=== PATIENT | female | born 1990 | race Caucasian/White ===

== ENCOUNTER → 2016-10-12 | Outpatient (REF) | payer OTHER | LOC: M LAB REF 13:05 | PROVIDERS: ATTEND Physician Assistant | DX: N39.0 Urinary tract infection, site not specified (principal) ==

== ENCOUNTER → 2016-12-03 | Outpatient (REF) | payer OTHER | LOC: M LAB REF 10:04 | PROVIDERS: ATTEND Physician Assistant | DX: R39.9 Unspecified symptoms and signs involving the genitourinary system (principal) ==

== ENCOUNTER 2019-09-29 08:12 | Emergency (ER) | payer OTHER ==
[~2019-09-29] VITALS: Ht 157.5 cm; Wt 91.2 kg
[2019-09-29] MEDS ORDERED: NS 1,000 ML IV ONE (08:30)
[2019-09-29 09:12] LABS: BASO % 0.2 % (0.0-1.0); EOS # 0.2 10^3/uL (0.0-0.5); EOS % 4.2 % (0.0-3.0); HEMOGLOBIN 12.9 g/dl (12.0-15.5); LYMPH # 0.9 10^3/uL (1.5-5.0); LYMPH % 16.9 % (24.0-44.0); MEAN CORPUSCULAR HEMOGLOBIN 28.9 pg (27.0-33.0); MEAN CORPUSCULAR HGB CONC 33.9 g/dl (32.0-36.5); MEAN CORPUSCULAR VOLUME 85.2 fl (80.0-96.0); MONO # 0.6 10^3/uL (0.0-0.8); MONO % 12.3 % (0.0-5.0); NEUTROPHILS # 3.3 10^3/uL (1.5-8.5); NEUTROPHILS % 66.2 % (36.0-66.0); PLATELET COUNT, AUTOMATED 243 10^3/uL (150-450); RED BLOOD COUNT 4.46 10^6/uL (4.00-5.40)
[2019-09-29] MEDS ORDERED: ACETAMINOPHEN TAB 650MG DOSE (2X325MG) PO ONE (09:15)
[2019-09-29] MEDS ORDERED: CIPRODEX AS (09:18)
[2019-09-29] MEDS ORDERED: AZEL1SPR3 (09:18)
[2019-09-29] MEDS ORDERED: SULF1TAB93 PO (09:18)
[2019-09-29] MEDS ORDERED: [UNRECOGNIZED DRUG - CODE] (09:19)
[2019-09-29 09:22] LABS: HCG, SERUM QUALITATIVE NEGATIVE (NEGATIVE)
[2019-09-29 09:26] LABS: ALBUMIN 3.9 GM/DL (3.2-5.2); ALT/SGPT 86 U/L (12-78); BILIRUBIN,TOTAL 0.6 MG/DL (0.2-1.0); BLOOD UREA NITROGEN 6 MG/DL (7-18); C REACTIVE PROTEIN QUANTITATIV 4.42 MG/DL (0.00-0.30); CALCIUM LEVEL 8.6 MG/DL (8.5-10.1); CARBON DIOXIDE LEVEL 26 MEQ/L (21-32); CHLORIDE LEVEL 102 MEQ/L (98-107); CK-MB VALUE MASS < 1.0 NG/ML (<3.6); CPK CREATINE PHOSPHOKINASE 125 U/L (26-192); CREATININE FOR GFR 0.86 MG/DL (0.55-1.30); GLOMERULAR FILTRATION RATE > 60.0 (>60); GLUCOSE, FASTING 79 MG/DL (70-100); LDH LACTATE DEHYDROGENASE 320 U/L (84-246); POTASSIUM SERUM 4.2 MEQ/L (3.5-5.1); SODIUM LEVEL 136 MEQ/L (136-145); TOTAL PROTEIN 6.9 GM/DL (6.4-8.2); TROPONIN I < 0.02 NG/ML (< 0.10)
[2019-09-29 09:29] LABS: INR 1.13; PROTHROMBIN TIME 14.2 SECONDS (11.8-14.0)
--- NOTE | 2019-09-29 09:29 | REP ---
Clinical: Coronavirus workup . Comparison: None . Findings: The mediastinum and cardiac silhouette are stable and within normal limits for portable technique. The lung perdomo are clear without acute consolidation, effusion, or pneumothorax. Skeletal structures are intact. Impression: No acute cardiopulmonary process appreciated. Electronically Signed by Perez Connolly MD 09/29/2019 09:20 A
[2019-09-29 09:30] LABS: PARTIAL THROMBOPLASTIN TIME 31.9 SECONDS (25.0-38.4)
[2019-09-29 09:32] LABS: D-DIMER QUANT 966.35 ng/ml (<500)
[2019-09-29] MEDS ORDERED: ISOVUE-370 76% 100ML VIAL As Ordered ONE (09:46)
--- NOTE | 2019-09-29 10:16 | REP ---
Clinical: Acute chest pain and shortness of breath . Technique: Axial contrast enhanced images from the thoracic inlet to the upper abdomen using 100 ml Isovue 370 intravenous contrast material with coronal and sagittal re-formations. Findings: Satisfactory enhancement of the pulmonary vasculature is achieved and no filling defects are identified to suggest pulmonary embolus. Thoracic aorta is normal caliber without aneurysm or dissection. Heart and pericardium are normal. Bilateral lung perdomo are well aerated and clear without acute pulmonary parenchymal consolidation or atelectasis. No nodule or mass lesion. No pleural effusion/reaction. No pneumothorax. No adenopathy. Impression: No evidence for pulmonary embolus. No acute pleuroparenchymal or mediastinal process. Electronically Signed by Perez Connolly MD 09/29/2019 10:09 A
[2019-09-29 11:15] VITALS: BP 99/53
--- NOTE | 2019-09-29 19:20 | ECGEPIP ---
[facility] - ED Test Date: 2019-09-29 Pat Name: MING DIEHL Department: Room: - Gender: Female Cotton Tier: dominique : 1990 Requested By: Alfonzo Craven Order Number: [id number] Reading MD: Alfonzo Craven Measurements Intervals [place] Rate: 100 P: 58 [place]: 178 QRS: 61 QRSD: 79 T: 32 QT: 314 QTc: 405 Interpretive Statements SINUS TACHYCARDIA ABNORMAL RHYTHM ECG NONSPECIFIC ST T WAVE CHANGES NO PRIOR ECG FOR COMPARISON Electronically Signed on 09-29-2019 19:20:05 EDT by Alfonzo Craven
== END 2019-09-29 11:40 | disposition home or self-care (01) ==
LOC: M ED 08:12
DX: R06.00 Dyspnea, unspecified (principal); R50.9 Fever, unspecified; H60.92 Unspecified otitis externa, left ear; J32.9 Chronic sinusitis, unspecified; F41.9 Anxiety disorder, unspecified; Z87.09 Personal history of other diseases of the respiratory system; Z79.899 Other long term (current) drug therapy; Z79.2 Long term (current) use of antibiotics; Z20.828 Contact with and (suspected) exposure to other viral communicable diseases
CPT/HCPCS: 71045; 71275; 80053; 82550; 82553; 82728; 83605; 83615; 84145; 84484; 84703; 85025; 85379; 85610; 85730; 86140; 87040; 87486; 87581; 87633; 87798; 93005; 96360; 96361; 99284; C9803; Q9967; U0002

== ENCOUNTER → 2019-12-10 | Outpatient (CLI) | payer OTHER ==
[~2019-12-10] MED LIST: AZEL1SPR3; CIPRODEX AS; SULF1TAB93 PO; [UNRECOGNIZED DRUG - CODE]
--- NOTE | 2019-12-10 11:50 | REP ---
ULTRASOUND RIGHT BREAST: HISTORY: Retroareolar lump for 1 week. Real-time sonographic evaluation of the right retroareolar region is performed at the site of a palpable abnormality. No cyst or solid nodule is seen. IMPRESSION: ACR 1 negative ultrasound right retroareolar region. No cystic or solid nodule seen at the site of the palpable lump. Clinical correlation and followup recommended.
== END ==
LOC: M WHC 08:05
PROVIDERS: ATTEND Nurse Practitioner Women's Health
DX: N63.10 Unspecified lump in the right breast, unspecified quadrant (principal)

== ENCOUNTER → 2020-05-19 | Outpatient (REF) | payer OTHER | LOC: M SFHCWAGY 16:58 | PROVIDERS: ATTEND Nurse Practitioner Women's Health | DX: N90.89 Other specified noninflammatory disorders of vulva and perineum (principal) ==

== ENCOUNTER → 2020-06-04 | Outpatient (REF) | payer OTHER ==
[2020-06-06 19:16] LABS: HSV IgM TYPES 1&2 0.97 Ratio (0.00-0.90)
== END ==
LOC: M PLALAB 09:58
PROVIDERS: ATTEND Nurse Practitioner Women's Health
DX: N90.89 Other specified noninflammatory disorders of vulva and perineum (principal)

== ENCOUNTER → 2020-06-04 | Outpatient (CLI) | payer OTHER ==
[2020-06-04 11:10] LABS: HEMATOCRIT 39.6 % (36.0-47.0); HEMOGLOBIN 13.1 g/dl (12.0-15.5); MEAN CORPUSCULAR HEMOGLOBIN 29.6 pg (27.0-33.0); MEAN CORPUSCULAR HGB CONC 33.1 g/dl (32.0-36.5); MEAN CORPUSCULAR VOLUME 89.4 fl (80.0-96.0); PLATELET COUNT, AUTOMATED 331 10^3/uL (150-450); RED BLOOD COUNT 4.43 10^6/uL (4.00-5.40); WHITE BLOOD COUNT 7.1 10^3/uL (4.0-10.0)
[2020-06-04 11:47] LABS: ALBUMIN 3.8 GM/DL (3.2-5.2); ALT/SGPT 65 U/L (12-78); BILIRUBIN,TOTAL 1.2 MG/DL (0.2-1.0); BLOOD UREA NITROGEN 13 MG/DL (7-18); CALCIUM LEVEL 8.9 MG/DL (8.5-10.1); CARBON DIOXIDE LEVEL 29 MEQ/L (21-32); CHLORIDE LEVEL 106 MEQ/L (98-107); CHOLESTEROL LEVEL 151 MG/DL (<200); CHOLESTEROL RISK RATIO 2.796 (<5); CREATININE FOR GFR 0.71 MG/DL (0.55-1.30); FREE T4 1.16 NG/DL (0.76-1.46); GLOMERULAR FILTRATION RATE > 60.0 (>60); GLUCOSE, FASTING 89 MG/DL (70-100); HDL CHOLESTEROL 54 MG/DL (>40); LDL CHOLESTEROL 87 MG/DL (<100); NON-HDL-C 97 MG/DL; POTASSIUM SERUM 4.2 MEQ/L (3.5-5.1); SODIUM LEVEL 138 MEQ/L (136-145); TOTAL PROTEIN 6.4 GM/DL (6.4-8.2); TRIGLYCERIDES LEVEL 52 MG/DL (<150)
== END ==
LOC: M PLALAB 09:59
PROVIDERS: ATTEND Family Medicine
DX: F41.9 Anxiety disorder, unspecified (principal); E66.3 Overweight

== ENCOUNTER → 2020-08-28 | Outpatient (REF) ==
[~2020-08-28] MED LIST changes: +CIPR7.5D5 AS; -CIPRODEX AS
== END ==
LOC: M LABSMTC 11:59
PROVIDERS: ATTEND Pediatrics
DX: Z11.52 Encounter for screening for COVID-19 (principal)

== ENCOUNTER → 2020-08-31 | Outpatient (REF) | LOC: M LABSMTC 11:54 | PROVIDERS: ATTEND Pediatrics | DX: Z20.822 Contact with and (suspected) exposure to COVID-19 (principal) ==

== ENCOUNTER 2021-01-28 21:24 | Emergency (ER) | payer OTHER ==
[~2021-01-28] VITALS: Ht 157.5 cm; Wt 90.3 kg
[~2021-01-28 21:24] MED LIST changes: +BACTDSTA PO; -SULF1TAB93 PO
[2021-01-28 21:27] VITALS: BP 128/79
[2021-01-28] MEDS ORDERED: MONT10TA10 (21:36)
[2021-01-28] MEDS ORDERED: HYDR-3363 (21:36)
[2021-01-29] MEDS ORDERED: AUGMENTIN 875 MG TAB PO ONE (00:40)
[2021-01-29] MEDS ORDERED: LIDOCAINE 1% MDV 20ML VIAL SC ONE (00:40)
[2021-01-29] MEDS ORDERED: NEOSPORIN OINT 0.9 GM PKT TOP ONE (00:40)
[2021-01-29] MEDS ORDERED: AUGM875T28 PO (01:18)
== END 2021-01-29 01:43 | disposition home or self-care (01) ==
LOC: M ED 21:24
DX: S01.85XA Open bite of other part of head, initial encounter (principal); W54.0XXA Bitten by dog, initial encounter; Y92.009 Unspecified place in unspecified non-institutional (private) residence as the place of occurrence of the external cause; Y93.9 Activity, unspecified; Y99.9 Unspecified external cause status

== ENCOUNTER 2021-02-17 17:55 | Emergency (ER) | payer OTHER ==
[~2021-02-17] VITALS: Ht 157.5 cm; Wt 89.4 kg
[~2021-02-17 17:55] MED LIST changes: +AUGM875T28 PO; +HYDR-3363; +MONT10TA10
[2021-02-17] MEDS ORDERED: VITMTA PO (18:08)
[2021-02-17] MEDS ORDERED: CLAR5TAB7 PO (18:08)
[2021-02-17] MEDS ORDERED: MIRE1IUD IU (18:08)
[2021-02-17 19:05] LABS: GLUCOSE, URINE (UA) MANUAL NEGATIVE (NEGATIVE); KETONE, URINE MANUAL OBSCURED mg/dL (NEGATIVE)
[2021-02-17 19:06] LABS: BILIRUBIN, URINE MANUAL OBSCURED (NEGATIVE); UROBILINOGEN, URINE MANUAL OBSCURED mg/dl (NORMAL)
[2021-02-17 19:14] LABS: BACTERIA, URINE SMALL AMOUNT; HYALINE CAST, URINE NONE SEEN /lpf (0-1); RBC, URINE TNTC /hpf (0-3); SQUAMOUS EPITHELIAL CELL URINE NONE SEEN /hpf (SMALL AMT); TRANSITIONAL EPI CELLS, URINE SMALL AMOUNT /hpf
[2021-02-17] MEDS ORDERED: NS 1,000 ML IV ONE (23:35)
[2021-02-18 00:27] LABS: BASO # 0.1 10^3/uL (0.0-0.2); BASO % 0.3 % (0.0-1.0); EOS # 0.1 10^3/uL (0.0-0.5); EOS % 0.3 % (0.0-3.0); HEMATOCRIT 38.7 % (36.0-47.0); HEMOGLOBIN 13.3 g/dl (12.0-15.5); LYMPH # 1.1 10^3/uL (1.5-5.0); LYMPH % 6.8 % (24.0-44.0); MEAN CORPUSCULAR HEMOGLOBIN 29.9 pg (27.0-33.0); MEAN CORPUSCULAR HGB CONC 34.4 g/dl (32.0-36.5); MONO # 0.8 10^3/uL (0.0-0.8); MONO % 4.8 % (2.0-8.0); NEUTROPHILS # 14.2 10^3/uL (1.5-8.5); NEUTROPHILS % 86.6 % (36.0-66.0); PLATELET COUNT, AUTOMATED 337 10^3/uL (150-450); RED BLOOD COUNT 4.45 10^6/uL (4.00-5.40); WHITE BLOOD COUNT 16.4 10^3/uL (4.0-10.0)
[2021-02-18] MEDS ORDERED: cefTRIAXone SOD 1 GM in D5W MINI-BAG PLUS 50 ML IV ONE (01:00)
[2021-02-18] MEDS ORDERED: KETOROLAC 30 MG/ML 1ML VIAL IV ONE (01:00)
--- NOTE | 2021-02-18 01:42 | REPVR ---
PROCEDURE INFORMATION: Exam: CT Abdomen And Pelvis Without Contrast Exam date and time: 02/17/2021 11:33 PM Age: 30 years old Clinical indication: Abdominal pain; Flank; Right; Additional info: R flank pain, hematuria, dysuria, R. O stone vs pyelo TECHNIQUE: Imaging protocol: Computed tomography of the abdomen and pelvis without contrast. Radiation optimization: All CT scans at this facility use at least one of these dose optimization techniques: automated exposure control; mA and/or kV adjustment per patient size (includes targeted exams where dose is matched to clinical indication); or iterative reconstruction. COMPARISON: None Study limitations: Evaluation for mass, inflammatory change, including bowel wall/fold thickening, viscera, and vasculature, is suboptimal without contrast. FINDINGS: LUNG BASES: Minimal dependent atelectasis. VASCULAR: Major vasculature is within normal limits for noncontrast evaluation. PERITONEAL : No free air. Trace amount of free fluid within the pelvis. This could be physiologic. GI: No hiatal hernia. The stomach contains some ingested material and gas. The stomach is not sufficiently distended to evaluate wall thickening. No significant asymmetric small-bowel distention to suggest a complete obstruction. Evaluation for bowel wall and fold thickening is compromised on this study, secondary to lack of any contrast. Mild gastroenteritis cannot be excluded by this exam. No focal mesenteric inflammation is seen. Small nonspecific mesenteric lymph nodes are noted. Scattered fecal material and gas within portions of the colon. No pericolonic inflammation. No evidence of acute diverticulitis. The appendix does not appear inflamed. HEPATOBILIARY, PANCREAS, SPLEEN: Hepatic length is 15.9 cm. Attenuation of the liver is consistent with fatty infiltration. No calcified gallstones. No pancreatic inflammation. Spleen not enlarged. ADRENALS, KIDNEYS, BLADDER, RETROPERITONEAL: Adrenals within normal limits. No hydronephrosis. No perinephric stranding or fluid is seen. Evaluation of renal parenchyma is limited without contrast. No renal calculi seen bilaterally. There is mild prominence of the right ureter compared to the left and minimal right periureteral stranding. No ureteral calculi are seen. Multiple calcifications seen within the pelvis are felt likely to represent phleboliths. No calcifications within the urinary bladder. Appearance of the right ureter may be secondary to a recently passed or UTI. Correlation with hematuria and urinalysis would be helpful. If there is hematuria or evidence of infection, imaging with contrast could be of additional diagnostic benefit. No bladder wall thickening. No perivesical stranding. PELVIC: Anteverted uterus. An IUD is seen within the uterus, appearing to be in appropriate position. Gas within the vagina may be iatrogenic. MUSCULOSKELETAL: No acute findings. IMPRESSION: Study limitations discussed above. Slight dilation of the right ureter with mild surrounding inflammation may be secondary to a recently passed stone or inflammation/infection. Findings and recommendations as discussed above. Other incidental findings discussed above. Electronically signed by: Albert Henderson On 02/18/2021 01:42:21 AM
[2021-02-18] MEDS ORDERED: CIPR500T39 PO ×2 (01:56→01:58)
[2021-02-18] MEDS ORDERED: PHEN-372 PO (01:56)
[2021-02-18 02:00] VITALS: BP 112/65
[2021-02-18] MEDS ORDERED: PHENAZOPYRIDINE 100 MG TAB PO ONE (02:05)
== END 2021-02-18 02:19 | disposition home or self-care (01) ==
LOC: M ED 17:55
DX: N10 Acute pyelonephritis (principal); N39.0 Urinary tract infection, site not specified; R31.9 Hematuria, unspecified
CPT/HCPCS: 74176; 80047; 81000; 84702; 85025; 87088; 87186; 96361; 96365; 96375; 99284; J0696; J1885

== ENCOUNTER → 2021-04-24 | Outpatient (REF) ==
[~2021-04-24] MED LIST changes: +CIPR500T39 PO; +CLAR5TAB7 PO; +MIRE1IUD IU; +PHEN-372 PO; +VITMTA PO
== END ==
LOC: M LABSMTC 10:46
PROVIDERS: ATTEND Pediatrics

== ENCOUNTER → 2022-05-20 | Outpatient (CLI) | payer BC ==
[~2022-05-20] MED LIST changes: -MONT10TA10; +MONT10TA97
== END ==
LOC: M LABSMTC 12:21
PROVIDERS: ATTEND Plastic Surgery Surgery of the Hand
DX: Z01.818 Encounter for other preprocedural examination (principal); Z11.52 Encounter for screening for COVID-19

== ENCOUNTER 2023-04-28 20:26 | Emergency (ER) | payer BC ==
[~2023-04-28] VITALS: Ht 157.5 cm; Wt 92.0 kg
[2023-04-28 20:27] VITALS: BP 146/85; TEMP 98.6; O2SAT 98
[2023-04-28 21:10] LABS: BASO % 0.4 % (0.0-1.0); EOS # 0.2 10^3/uL (0.0-0.5); EOS % 2.3 % (0.0-3.0); HEMATOCRIT 40.3 % (36.0-47.0); HEMOGLOBIN 13.5 g/dl (12.0-15.5); LYMPH # 2.6 10^3/uL (1.5-5.0); MEAN CORPUSCULAR HEMOGLOBIN 29.9 pg (27.0-33.0); MEAN CORPUSCULAR HGB CONC 33.5 g/dl (32.0-36.5); MEAN CORPUSCULAR VOLUME 89.4 fl (80.0-96.0); MONO # 0.8 10^3/uL (0.0-0.8); MONO % 7.7 % (2.0-8.0); NEUTROPHILS # 6.3 10^3/uL (1.5-8.5); NEUTROPHILS % 63.4 % (36.0-66.0); PLATELET COUNT, AUTOMATED 333 10^3/uL (150-450); RED BLOOD COUNT 4.51 10^6/uL (4.00-5.40); WHITE BLOOD COUNT 9.9 10^3/uL (4.0-10.0)
[2023-04-28 21:38] LABS: CK-MB VALUE MASS < 1.0 NG/ML (<3.6); LIPASE 29 U/L (12-53)
[2023-04-28 21:40] LABS: ALBUMIN 4.1 G/DL (3.2-5.2); ALKALINE PHOSPHATASE 85 U/L (46-116); ALT/SGPT 35 U/L (7.0-40); AST/SGOT 17 U/L (<34); BILIRUBIN,DIRECT 0.3 MG/DL (<0.4); BILIRUBIN,TOTAL 0.8 MG/DL (0.3-1.2); BLOOD UREA NITROGEN 15 MG/DL (9-23); CALCIUM LEVEL 9.6 MG/DL (8.5-10.1); CARBON DIOXIDE LEVEL 28 MMOL/L (20-31); CHLORIDE LEVEL 105 MMOL/L (98-107); CPK CREATINE PHOSPHOKINASE 75 U/L (34-145); CREATININE FOR GFR 0.62 MG/DL (0.55-1.30); GLOMERULAR FILTRATION RATE > 60.0 (>60); GLUCOSE, FASTING 82 MG/DL (60-100); MB/CK RELATIVE INDEX 1.33 (< OR =4); POTASSIUM SERUM 4.3 MMOL/L (3.5-5.1); SODIUM LEVEL 141 MMOL/L (136-145); TOTAL PROTEIN 6.8 G/DL (5.7-8.2)
[2023-04-28 21:42] LABS: THYROID STIMULATING HORMONE 2.357 uIU/ML (0.55-4.78)
[2023-04-28 21:43] LABS: HCG, SERUM QUALITATIVE NEGATIVE (NEGATIVE)
== END 2023-04-29 00:14 | disposition left against medical advice (07) ==
LOC: M ED 20:26
DX: Z53.21 Procedure and treatment not carried out due to patient leaving prior to being seen by health care provider (principal)

== ENCOUNTER → 2023-09-01 | Outpatient (CLI) | payer BC ==
[2023-09-01 16:38] LABS: BASO % 0.3 % (0.0-1.0); EOS # 0.1 10^3/uL (0.0-0.5); EOS % 1.4 % (0.0-3.0); HEMOGLOBIN 13.9 g/dl (12.0-15.5); LYMPH # 0.7 10^3/uL (1.5-5.0); LYMPH % 9.8 % (24.0-44.0); MEAN CORPUSCULAR HEMOGLOBIN 29.4 pg (27.0-33.0); MEAN CORPUSCULAR HGB CONC 33.1 g/dl (32.0-36.5); MEAN CORPUSCULAR VOLUME 88.8 fl (80.0-96.0); MONO # 0.4 10^3/uL (0.0-0.8); MONO % 5.8 % (2.0-8.0); NEUTROPHILS % 82.6 % (36.0-66.0); PLATELET COUNT, AUTOMATED 286 10^3/uL (150-450); RED BLOOD COUNT 4.73 10^6/uL (4.00-5.40)
[2023-09-01 17:11] LABS: ALBUMIN 3.7 G/DL (3.2-5.2); ALKALINE PHOSPHATASE 96 U/L (46-116); ALT/SGPT 36 U/L (7.0-40); AST/SGOT 16 U/L (<34); BILIRUBIN,TOTAL 1.2 MG/DL (0.3-1.2); BLOOD UREA NITROGEN 14 MG/DL (9-23); CALCIUM LEVEL 9.3 MG/DL (8.5-10.1); CARBON DIOXIDE LEVEL 30 MMOL/L (20-31); CHLORIDE LEVEL 107 MMOL/L (98-107); CREATININE FOR GFR 0.66 MG/DL (0.55-1.30); GLOMERULAR FILTRATION RATE > 60.0 (>60); GLUCOSE, FASTING 92 MG/DL (60-100); SODIUM LEVEL 138 MMOL/L (136-145); TOTAL PROTEIN 6.5 G/DL (5.7-8.2)
[2023-09-04 06:34] LABS: WHITE BLOOD COUNT 7.2 10^3/uL (4.0-10.0)
== END ==
LOC: M LAB 16:00
PROVIDERS: ATTEND Internal Medicine
DX: R19.7 Diarrhea, unspecified (principal)

== ENCOUNTER → 2024-01-01 | Outpatient (REF) | LOC: M EMP 07:49 | PROVIDERS: ATTEND Family Medicine | DX: Z20.822 Contact with and (suspected) exposure to COVID-19 (principal) ==

== ENCOUNTER → 2024-04-11 | Outpatient (CLI) | payer BC ==
[2024-04-11 10:11] LABS: BASO % 0.5 % (0.0-1.0); EOS # 0.3 10^3/uL (0.0-0.5); EOS % 4.6 % (0.0-3.0); HEMATOCRIT 39.5 % (36.0-47.0); HEMOGLOBIN 13.4 g/dl (12.0-15.5); LYMPH # 1.7 10^3/uL (1.5-5.0); MEAN CORPUSCULAR HEMOGLOBIN 30.3 pg (27.0-33.0); MEAN CORPUSCULAR HGB CONC 33.9 g/dl (32.0-36.5); MEAN CORPUSCULAR VOLUME 89.4 fl (80.0-96.0); MONO # 0.5 10^3/uL (0.0-0.8); MONO % 7.3 % (2.0-8.0); NEUTROPHILS # 3.8 10^3/uL (1.5-8.5); NEUTROPHILS % 60.3 % (36.0-66.0); PLATELET COUNT, AUTOMATED 312 10^3/uL (150-450); RED BLOOD COUNT 4.42 10^6/uL (4.00-5.40)
[2024-04-11 10:31] LABS: ALBUMIN 3.7 G/DL (3.2-5.2); ALKALINE PHOSPHATASE 95 U/L (35-104); ALT/SGPT 35 U/L (7.0-40); AST/SGOT 11 U/L (<34); BLOOD UREA NITROGEN 12 MG/DL (9-23); CALCIUM LEVEL 9.3 MG/DL (8.5-10.1); CARBON DIOXIDE LEVEL 29 MMOL/L (20-31); CHLORIDE LEVEL 108 MMOL/L (98-107); CREATININE FOR GFR 0.61 MG/DL (0.55-1.30); GLOMERULAR FILTRATION RATE > 60.0 (>60); GLUCOSE, FASTING 93 MG/DL (60-100); POTASSIUM SERUM 4.2 MMOL/L (3.5-5.1); SODIUM LEVEL 140 MMOL/L (136-145); TOTAL PROTEIN 6.7 G/DL (5.7-8.2)
[2024-04-11 10:34] LABS: THYROID STIMULATING HORMONE 1.427 uIU/ML (0.55-4.78)
[2024-04-15 11:34] LABS: WHITE BLOOD COUNT 6.3 10^3/uL (4.0-10.0)
== END ==
LOC: M LAB 08:37
PROVIDERS: ATTEND Internal Medicine
DX: E28.2 Polycystic ovarian syndrome (principal)

== ENCOUNTER → 2024-07-19 | Outpatient (CLI) | payer BC | LOC: M RAD 12:35 | PROVIDERS: ATTEND Nurse Practitioner Family | DX: R79.89 Other specified abnormal findings of blood chemistry (principal); K76.0 Fatty (change of) liver, not elsewhere classified ==

== ENCOUNTER → 2025-01-23 | Outpatient (REF) | payer BC | LOC: M LAB REF 20:53 | PROVIDERS: ATTEND Physician Assistant | DX: B34.9 Viral infection, unspecified (principal) ==